=== PATIENT | female | born 1985 | race African-American/Black ===

== ENCOUNTER 2019-08-01 11:57 | Inpatient (IN) | payer OTHER ==
[2019-07-30 11:50] LABS: Absolute Lymphocytes (CBC) 1.2 K/uL (0.7-4.9); Basophils % 0.8 % (0-1.3); Hematocrit 34.5 % (36.0-45.0); Lymphocytes % 11.1 % (15.3-44.8); MPV 8.1 fL (7.6-11.3); RBC Red Blood Cell Count 4.86 M/uL (3.86-4.86)
[2019-07-30 12:59] LABS: Urine Appearance CLEAR; Urine Bilirubin NEGATIVE (NEG); Urine Blood TRACE (NEG); Urine Color YELLOW; Urine Glucose NEGATIVE (NEG); Urine Protein NEGATIVE (NEG); Urine Specific Gravity 1.015 (1.005-1.030); Urine Urobilinogen 0.2 mg/dL (0.2-1.0); Urine pH 5.5 (5.0-7.0)
[2019-07-30 13:00] LABS: Urine Microscopic Reflex ORDER UMIC
[2019-07-30 13:43] LABS: Urine Bacteria <20 /HPF (<20); Urine Culture Reflex Order NOT NEEDED; Urine RBC <5 /HPF (NONE SEEN)
[2019-08-01 12:13] LABS: Specific Gravity 1.015 (1.005-1.030)
[2019-08-01] MEDS ORDERED: Ringers Lactate 1,000 ML IV ONE ×4 (12:14→16:53)
[2019-08-01] MEDS ORDERED: SCOPOLAMINE HYDROBROMIDE PATCH TD ONE (12:14)
[2019-08-01] MEDS ORDERED: MIDAZOLAM HCL 2 MG/2 ML INJ ONE (12:55)
[2019-08-01] MEDS ORDERED: LIDOCAINE 2% MPF 5 ML VIAL ONE (12:55)
[2019-08-01] MEDS ORDERED: ROCURONIUM 50 MG/5 ML VIAL IV ONE (12:55)
[2019-08-01] MEDS ORDERED: PROPOFOL 200 MG/20 ML VIAL IV ONE (12:55)
[2019-08-01] MEDS ORDERED: ONDANSETRON 4 MG/2 ML VIAL ONE (12:55)
[2019-08-01] MEDS ORDERED: FENTANYL CITR 100 MCG/2 ML ONE ×3 (12:55→15:52)
[2019-08-01] MEDS ORDERED: BUPIVACAINE 0.5% PF 10 ML VIAL ONE (13:18)
[2019-08-01] MEDS ORDERED: NS 0.9% VIAL 30 ML ONE (13:25)
[2019-08-01] MEDS ORDERED: NA CHLORIDE 0.9% 1,000 ML ONE ×2 (13:26→13:57)
[2019-08-01] MEDS ORDERED: dexAMETHasone 10 MG/ML VIAL ONE (13:53)
[2019-08-01] MEDS ORDERED: BUPIVACAINE 0.25% PF 30 ML VIAL ONE (13:56)
[2019-08-01] MEDS: NA CHLORIDE 0.9% 1,000 ML ONE ×2 (14:30→16:00)
[2019-08-01] MEDS ORDERED: CEFAZOLIN SODIUM 1 GM/VIAL ONE (15:17)
[2019-08-01] MEDS: VASOPRESSIN 20 UNIT/ML VIAL ONE ×2 (15:30→16:49)
[2019-08-01] MEDS ORDERED: MORPHINE 10 MG/ML VIAL ONE (17:01)
[2019-08-01] MEDS ORDERED: KETOROLAC 30 MG/ML INJ ONE (17:03)
[2019-08-01] MEDS ORDERED: PROMETHAZINE 25 MG/ML VIAL IV PRN (17:27)
[2019-08-01] MEDS ORDERED: ONDANSETRON 4 MG/2 ML VIAL IV PRN (17:27)
[2019-08-01] MEDS ORDERED: HYDROMORPHONE HCL 1 MG/ML INJ IV PRN (17:27)
--- NOTE | 2019-08-01 17:37 | P.BOP ---
Preoperative diagnosis: pelvic pain, leiomyoma Postoperative diagnosis: same Primary procedure: diag hysteroscopy, laparoscopy, myomectomy, partial omentectomy, Surgery Scheduling Coordinator: Rosita Herrera Estimated blood loss: 400 Specimen: leiomyoma, 2.1lb; omentum Findings: large fundal degenerating leiomyoma with omental/small bowel adhesions Anesthesia: General Complications: None Drain(s): Urinary catheter Fluids & blood products: 2000 Transferred to: Recovery Room Condition: Good (Intraop consult Dr Méndez)
[2019-08-01] MEDS: MEPERIDINE HCL 25 MG/0.5 ML ONE ×2 (18:00→18:10)
[2019-08-01] MEDS ORDERED: MORPHINE 4 MG/ML SYR ONE (18:20)
[2019-08-01 19:00] VITALS: O2SAT 100
[2019-08-01 19:10] LABS: Basophils % 0.2 % (0-1.3); Hematocrit 32.1 % (36.0-45.0); MPV 8.2 fL (7.6-11.3)
[2019-08-01] MEDS: Ringers Lactate 1,000 ML IV SCH (19:20)
[2019-08-01 20:40] VITALS: BMI 23.2
[2019-08-01 21:03] LABS: Blood Morphology Comment NOT SEEN (NOT SEEN); Platelet Estimate ADEQ
[2019-08-02] MEDS: Ringers Lactate 1,000 ML IV SCH ×2 (03:32→20:30)
[2019-08-02] MEDS: IBUPROFEN 200 MG TAB PO PRN ×3 (06:07→23:32)
[2019-08-02] MEDS ORDERED: DIPHENHYDRAMINE 25 MG TAB/CAP PO PRN (19:22)
[2019-08-02 20:12] LABS: Absolute Lymphocytes (CBC) 1.5 K/uL (0.7-4.9); Basophils % 0.4 % (0-1.3); Hematocrit 29.8 % (36.0-45.0); Lymphocytes % 12.5 % (15.3-44.8); MPV 8.2 fL (7.6-11.3); RBC Red Blood Cell Count 4.12 M/uL (3.86-4.86)
--- NOTE | 2019-08-03 03:45 | OP ---
Date of Procedure: 08/01/2019 Surgeon: Margy Duarte MD Flame Burner: 1. Bulmaro Herrera MD. 2. Shanna Ingram. Preoperative Diagnoses: 1.Pelvic pain. 2.Enlarging fibroids. 3.Irregular periods. Postoperative Diagnoses: 1.Pelvic pain. 2.Enlarging fibroids. 3.Irregular periods. 4.Omental small adhesions. Procedure Performed: Diagnostic laparoscopy converted to exploratory laparotomy, partial omentectomy , lysis of small bowel adhesions and myomectomy. The fibroid weighs 2.1 grams and that was 15 to 18 cm in size. Intraoperative Consultation: Champ Méndez MD, General Surgery. Specimens: Uterus and omentum. Estimated Blood Loss: 400. Urine Output: 350. Fluids: 1800. Drains: Carroll catheter. Complications: No other complications. Condition: The patient's condition is stable. Indications: The patient is a 34-year-old lady who was referred to me by Dr. Whipple. She presented with acute onset right lower quadrant pain. She had been to [facility]. She had a CAT scan that showed a uterine mass. Ultrasound was performed and this was found to be a leiomyoma. We discussed with the patient about her future desires for fertility, no plans on a short-term basis. Patient is , in a stable relationship. Has history of heavy periods, severe menstrual cramps, and dysmenorrhea in the past. On examination, her uterus was about 18 weeks size, easily palpable and visible on the abdominal exam . Patient is a very small built 34-year-old lady. So, due to the presence of the pain and her white cell count was 14,000, she was given antibiotics fo r treatment of a possible infection. The differential diagnosis was a degenerating fibroid with infl ammation or an enlarging fibroid. Her white cell count had come down after the treatment. Her infec tion tests for GC were negative. We discussed about the possibility of the presence of endometriosis . However, the most significant presenting symptoms were the mass and the pain. The next problem is the leiomyoma that was measured at 14 cm. So, options were given to the patient for uterine artery embolization, selective embolization. Discussion of other methods of treatment for fibroids like ult rasound ablation, MRI, etc., were all reviewed with the patient including Lupron, which is a GnRH ago nist for shrinking the size of the fibroid. All these were discussed and given the patient's pain, s he wanted to proceed with a more surgical procedure. I have discussed about the options of myomectom y, the possibility that she could lose enough blood and that she might need to have hysterectomy. Jimmy smith was also explained the potential that if this is a leiomyosarcoma that she would need further surge ry and she consented for this procedure. So, we consented for hysteroscopy, laparoscopy, myomectomy and possible laparotomy. Description Of Procedure: After informed consent was verified, the patient was taken back to the OR, placed in supine fashion on the operating table. General anesthesia was given. No antibiotics were indicated as the procedure was planned of a laparoscopic myomectomy. Arms were tucked by the sides and the lithotomy position checked. Speculum was placed. The abdomen, vulva, vagina, and perineum were prepped and draped in a sterile fashion. Carroll was placed to drain the bladder and speculum used to expose the cervix. Anterior lip grasped with 2 Allis clamps and di agnostic SlimLine hysteroscope was introduced into the uterus. The canal in the endometrial cavity a lso appeared to be extremely narrow. The left tubal ostium was mostly yet to be identified. The rig ht tubal ostia very anterior and superior in relation to the left-sided tubal ostium and this probabl y most likely from the displacement of the fundal fibroid pushing from the posterior aspect of the ut erine body and distorting the endometrial canal and although impinging on it making it narrower. The scope was removed. A diagnostic VCare was introduced. This area was draped. A 1 cm supraumbilical incision was made with a scalpel using the open laparoscopy technique. Fascia was incised, tagged with 0 Vicryl sutures. Peritoneum entered sharply, S-retractor was placed. Sami on introduced, site of entry was checked, unremarkable. Gas was insufflated into the peritoneal cavi ty. After adequate insufflation, the upper abdominal surfaces were well visualized. The omentum vitaliy eared to be adhered to the anterior aspect of the fibroid and there were large blood vessels of the o mentum that seem the vascular supply to the fibroid. The fibroid almost appears to be parasitic taki ng the vascular supply from the omentum. It was not free in the posterior aspect as well and there was very limited amount of space between th e curvature of the sacral spine. The entire fibroid was encompassing the pelvic cavity. The ovary o n the left side was easily visualized and the tube was well on the right side with some difficulty. After dissection of the omentum, I was able to visualize it. A 5 left lower quadrant port was placed under direct vision after injecting with Marcaine and then, once looked inside the cavity, the LigaS ure was opened up. The omentum was started to be taken down and there was a large amount of bleeding from these vessels that were enlarged and were dilated to supply the fibroid. Systematically, the o mentum was taken down. However, the visualization was extremely suboptimal for me to get around the fibroid and the posterior aspect to look to see if there is bowel attachment and given the bleeding f rom the omentum, visualization was poor, I proceeded to convert to a laparotomy. The laparotomy instruments were counted and set up, and the patient's lithotomy was flattened out mor e. Then a lower midline incision was made from the suprapubic area all the way around the umbilicus to the supraumbilical incision. The fascia was incised with the monopolar tip, and then the subcutan eous tissues cauterized with the cautery. Peritoneum picked up with hemostats and opened with Evelyne a nd extended the peritoneal incision with the help of the monopolar energy. After the entire fibroid uterus was exposed, the uterus appeared to be extremely small. The fibroid was coming from the poste rolateral aspect on the left side of the fundal area, posterior and superior to the origin of the tub e on the left side. Once this was identified, the base of the fibroid was identified and plan was to inject vasopressin here. First, I had to separate the omentum from this. So, windows were made in the omentum and taken down with the help of the LigaSure. The omentum was from the fibroid by the time I had Dr. Trista hsah come to make sure that there was no further bleeding. There was a small omental mass that appear ed to be from condensation of the omental tissue, did not appear to be an irregular mass. However, t his was suspicious for mass and so plan was to remove it and this was removed later after he was ther e, creating the windows. There were adhesions of the small bowel, especially about 7 cm proximal to the ileocecal junction whe re the small polyp was attached with a thick adhesion to the fibroid. There was a degenerating part of the fibroid that was seen in this area, probably the inflammation from degeneration that created t his adhesion. This was taken down bluntly with the fingers and the bowel got without any t rauma to it, but the dense adhesion was taken out with the help of the LigaSure after Dr. Méndez scr ubbed in. Once this was done, the bowel was packed in the abdominal cavity and the patient placed in slight T-b urg. The fibroid popped out of the abdomen. Then, the base of the fibroid was injected with 20 unit s of vasopressin mixed in 20 units of normal saline, 40 units like this was injected at the base. Th en, an incision was made at the base just on the lower surface of the fibroid in an attempt to keep a s much myometrium intact as possible and once this incision was made cauterizing the vessels, there w as significant bleeding at this point. Once the vessels were cauterized and the cautery was used vitaliy ropriately, the fibroid was and removed from the fundus. The incision that had to be made in order for me to remove the fibroid almost made a vertical scar across the fundus from the anterior wall of the myometrium to the posterior wall of the uterus running along the fundus. So, re-shaping the uterus was important for tubal attachment, the cornual ends were unaffected. So, the flap that was taken from the posterior aspect after the fibroid was shelled out, was used to flip over anterior ly and close the defect. Once the endometrial canal and endometrium was identified, it was and then Monocryl 3-0 was used in a continuous running fashion to close the endometrium and subendom etrial tissues first. Then, a second layer of 0 PDS was used to close the lower third of the myometr ium in a continuous running imbricating fashion. Then, a third layer was placed with 2-0 PDS in a co ntinuous imbricated fashion and then 0 PDS was used to close the third layer. Then, 2-0 Monocryl was used to close the serosal surface with a baseball stitch. After the entire closure, there was excel lent remodeling of the entire uterine body and once this was shaved, the insertion of the tubes appea red to be completely unremarkable, unaffected by the procedure and the fibroid was removed in total w ithout cutting into the fibroid. There was a small amount of fibroid tissue that probably was remnan t and this was removed. There were 2 other small fibroids that were present, but at this point, ther e was no need to take them out because they appeared to be less than 1 cm. Once the large fibroid wa s removed and the uterus was reshaped, the tubes were checked, the ovaries were checked, and everythi ng hemostatic. I needed to put 2-0 Vicryl sutures and another 2-0 PDS suture for hemostasis. Then, went on to place Surgicel on top of this despite applying pressure since there was bleeding, then Int erceed was placed after excellent hemostasis was secured. The uterus was put back into the cavity. Thorough irrigation and suction were performed. Then, with the Interceed in place, the uterus was tu cked in its place and the bowel left on top. All the packs were removed. All the sponge counts were correct at the end of this. Then, the peritoneum was closed with a continuous running 3-0 Monocryl suture. The fascia closed with the help of 0 PDS in a continuous running fashion all the way from th e top to the bottom. All the subcutaneous sutures were placed with 3-0 chromic and subcuticular 4-0 Vicryl continuous running suture was placed to close the incision. The Carroll was left in place. The VCare was removed. All the instrument, needle, and sponge counts were correct at the end of the aleyda e. Patient tolerated the procedure well, and she was recovered from anesthesia and taken to PACU in stable condition. JAMAR/JUMANA Voice ID: [id number] Report ID: [id number]
--- NOTE | 2019-08-03 05:42 | PN ---
Date of Progress Note: 08/02/2019 History: Postop day 1, patient is having moderate pain control. Dilaudid and Motrin for her pain me dications. Tolerating diet. No flatus yet. Able to ambulate and void without any problems. Mild v aginal bleeding. Physical Examination: VITAL SIGNS: Her temperature 98.6, 110/66, 65, and 16 for vitals. Her hemoglobin last night was 11 g, her baseline was 12.6. Not too much of a change, patient not tachycardic. GENERAL: She is unremarkable, not in any distress, lying in her bed. Recently received Dilaudid for pain and complaining of some itching. ABDOMEN: Softly distended, appropriately tender. EXTREMITIES: No edema or calf tenderness. Wearing her SCDs. Postop day #1, 24 hours from her exploratory laparotomy, myomectomy, lysis of adhesions and partial o mentectomy. Postoperatively doing well, continue to ambulate, oral pain medication [place] and schedul ed 600 of Motrin every 6 hours. She had a scopolamine patch for nausea. Continue ambulation. Repea t CBC this evening. Anemia, acute blood loss anemia after her surgery, very mild, could be delusiona l. Repeat the blood count and observe. Iron for home, not right now. Anticipate another 24-48 hour s of inpatient stay until the patient is passing flatus and has good pain control. Unable to the brenda ve without any signs of small bowel inactivity. Once the patient is able to tolerate diet well and p ass flatus and remains afebrile for at least 24 hours, we should be able to discharge her home. I wi ll see her again in 24 hours for followup on her CBC and monitor her. JAMAR/JUMANA Voice ID: [id number] Report ID: [id number]
[2019-08-03] MEDS ORDERED: IBUPROFEN 400 MG TAB ONE (05:56)
[2019-08-03] MEDS: IBUPROFEN 200 MG TAB PO SCH ×3 (06:03→17:49)
[2019-08-03] MEDS: HYDROCODONE/APAP 5/325 MG TAB PO PRN ×2 (07:24→20:55)
[2019-08-03 19:30] VITALS: BP 130/81; TEMP 97
--- NOTE | 2019-08-03 22:02 | PN ---
Date of Progress Note: 08/03/2019 Subjective: Postop day #2, patient doing well. Pain control excellent with ibuprofen and [place]. No nausea, vomiting. Tolerating diet. Passing flatus, ambulating without any problems, voiding withou t problems as well. Physical Examination: Vital Signs: T-max of 99.2, T current 97.0, 130/81, 18 and 83 of pulse. General: Patient doing excellent. No distress. Abdomen: Soft, nondistended. Minimally tender around the incision, which is appropriate. No hepato splenomegaly. Extremities: No edema or calf tenderness. Patient ambulating without any problems. Status post myomectomy, the patient doing well with resumption of bowel function noted. The patient is afebrile. White count down to 11; 20,000 was probably postop and just an acute reaction post surg terrell. No evidence of any infection. No concerns either. Plan: She will be discharged home today as she is tolerating diet and passing flatus. She has a [facility] appointment with me in the office this coming . She has a pain prescription [place] for discharge and ibuprofen 600 mg [id number] 3 tablets of 200 mg each to be taken every 6 hours an d she is aware for schedule. All the instructions have been given and an instruction sheet postop moran s been included in her chart for discharge to call with problems. Anemia, which is acute blood loss anemia, intraoperative, very minor shift in the hemoglobin to 11 g. Recommend iron after resumption of bowel movements. The patient is aware of this. No other concerns. Discharged home right now. JAMAR/JUMANA Voice ID: [id number] Report ID: [id number]
== END 2019-08-03 21:20 | disposition home or self-care (01) | DRG 742 ==
LOC: OR 11:57 → 2ND-WC 18:01
PROVIDERS: ADMIT Obstetrics & Gynecology; ATTEND Obstetrics & Gynecology
PROC: 0DBU0ZZ Excision of Omentum, Open Approach (ICD-10-PCS; 2019-08-01)
PROC: 0DN80ZZ Release Small Intestine, Open Approach (ICD-10-PCS; 2019-08-01)
PROC: 0UB90ZZ Excision of Uterus, Open Approach (ICD-10-PCS; principal; 2019-08-01 13:30)
DX: D25.9 Leiomyoma of uterus, unspecified (principal); D62 Acute posthemorrhagic anemia; N92.1 Excessive and frequent menstruation with irregular cycle; N94.6 Dysmenorrhea, unspecified; N73.9 Female pelvic inflammatory disease, unspecified; N73.6 Female pelvic peritoneal adhesions (postinfective)
CPT/HCPCS: 36415; 81003; 81015; 81025; 85025; 86850; 86900; 86901; 88305; J0690; J1100; J1170; J2175; J2250; J2405; J2704; J3010; J7030; J7120